=== PATIENT | female | born 1950 | race Caucasian/White ===

== ENCOUNTER 2020-07-25 10:06 | Observation (INO) | payer OTHER, SELFPAY ==
--- NOTE | ~2020-07-25 | MR_ITS ---
MRI OF THE BRAIN WITHOUT IV CONTRAST INDICATION: Confusion. COMPARISON: Head CT 07/25/2020 TECHNIQUE: Multiplanar multisequence MR imaging of the brain was obtained without IV contrast. FINDINGS: There is no hydrocephalus, extra-axial surface collection, or herniation. There is mild chronic microangiopathy. There is a 1.2 cm x 0.5 cm extra-axial nodule along the right parasylvian convexity on image 13 of series 9, most likely a meningioma. No associated mass effect nor adjacent parenchymal edema. The major flow voids at the skull base are preserved. 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 There is no acute infarct on diffusion-weighted imaging. There is no intracranial hemorrhage on the gradient recalled echo acquisition. The midline structures are normal. The cerebellar tonsils are normally positioned. The cerebellum and brainstem are normal. The craniocervical junction is normal. Osseous marrow signal intensity is homogenous. The visualized soft tissues are unremarkable. MR/MR head/brain wo con IMPRESSION: - There is a 1.2 cm x 0.5 cm extra-axial nodule along the right parasylvian convexity on image 13 of series 9, most likely a meningioma. No associated mass effect nor adjacent parenchymal edema. - There is mild chronic microangiopathy. 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
--- NOTE | ~2020-07-25 | CT_ITS ---
EXAMINATION: CT HEAD WITHOUT CONTRAST CT CERVICAL SPINE WITHOUT CONTRAST CLINICAL INFORMATION: Syncope. Status post fall. Neck pain. COMPARISON: None TECHNIQUE: Multidetector volumetric CT imaging of the head and cervical spine is acquired without intravenous contrast administration. Postprocessing is performed at a dedicated workstation. Multiplanar reformatted images are submitted. This CT scan was performed using dose optimization techniques as appropriate to a performed exam including the following: *Automated exposure control *Adjustment of mA and/or kV according to patient size (this includes techniques or standardized protocols for targeted exams were dose is matched to indication/reason for exam; i.e. extremities or head) *Use of iterative reconstruction technique DLP: 746.84 mGy-cm. FINDINGS: CT HEAD: The ventricles and sulci are age appropriate. There is no hydrocephalus. Mild global volume loss is noted. There is no evidence of acute intracranial hemorrhage, midline shift or mass effect. Rick to white matter differentiation is well preserved. No evidence of acute territorial infarction. Moderate calcific atherosclerosis of the internal carotid arteries. No evidence of abnormal extra-axial fluid collection. The osseous calvarium is intact. No evidence of significant calvarial soft tissue swelling or hematoma. The visualized paranasal sinuses and mastoid air cells are well-aerated. Cerumen is noted in the bilateral external auditory canals. CT CERVICAL SPINE: The vertebral body heights and alignment are maintained. Posterior elements are intact and in normal alignment. Atlantoaxial and atlantooccipital alignments are maintained. Degenerative changes are noted at the atlantoaxial articulation. There is severe narrowing of the C4-C5, C5-C6 and C6-C7 disc spaces with small marginal endplate osteophytes. Mild to moderate right neural foraminal stenosis at C4-C5 and C6-C7. Severe left neural foraminal stenosis at C6-C7. No evidence of prevertebral soft tissue swelling. The airway is widely patent. There is heterogeneity of the thyroid parenchyma without discrete nodule. The visualized lung apices are unremarkable. CT/CT cervical spine wo con IMPRESSION: 1. No acute intracranial abnormality. 2. No evidence of acute fracture or subluxation in the cervical spine. 3. Moderate cervical spondylosis from C4-C7.
[2020-07-25 10:22] VITALS: BP 155/79; PULSE 104; RESP 22; TEMP 36.4; O2SAT 97; BMI 27.0
[2020-07-25] MEDS: 0.9 % Sodium Chloride 1,000 ML 999 ML IV (11:39)
--- NOTE | 2020-07-25 11:41 | ED.GENADULT ---
HPI - General Adult General Chief complaint: Fall Stated complaint: ?uti, ams, not well kept Time Seen by Provider: 07/25/20 11:28 Source: patient Mode of arrival: ambulatory Limitations: no limitations History of Present Illness HPI narrative: Patient brought to the ED for evaluation. Patient brought in for fall possibly due to syncope. Patient does not remember what occurred. Patient admits she was standing all the sudden she was in the EMS ambulance. EMS report states neighbors heard a thud and found patient on the ground. Patient smells of urine. Patient presently has no physical complaints. Related Data Allergies Allergy/AdvReac Type Severity Reaction Status Date / Time penicillamine Allergy Unknown Verified 03/12/19 00:00 Review of Systems Review of Systems: Yes all other systems are reviewed and are negative Constitutional: Constitutional: Reports as per HPI and Reports no additional constitutional complaints Eyes: Eyes: Reports as per HPI and Reports no additional eye complaints ENT: Reports system reviewed and no additional complaints, except as documented and Reports as per HPI Cardiovascular: Cardiovascular: Reports as per HPI and Reports no additional cardiovascular complaints Respiratory: Respiratory: Reports as per HPI and Reports no additional respiratory complaints Gastrointestinal: Gastrointestinal: Reports as per HPI and Reports no additional gastrointestinal complaints Musculoskeletal: Musculoskeletal: Reports no additional musculoskeletal complaints and Reports as per HPI Neurologic: Reports system reviewed and no additional complaints, except as documented and Reports as per HPI [facility] Past Medical History Medical History (Updated 07/25/20 @ 16:35 by CHOCO Saxena) COVID-19 vaccine administered Social History Social History (Updated 07/25/20 @ 15:52 by Carlotta Crespo NP) Household Members Other:: Lives alone Alcohol intake: current Patient Tobacco Use Status: Never used Tobacco Advance Directives: No Advance Directives Information Provided: Yes Physical Exam Vital Signs: Vital Signs: Last Vital Signs Temp 97.6 F 07/25/20 10:22 Pulse 91 07/25/20 15:34 Resp 14 07/25/20 15:34 BP 157/80 H 07/25/20 15:34 Pulse Ox 96 07/25/20 15:34 Body Mass Index 27.0 Const: General: cooperative, healthy appearing, comfortable, no acute distress, well developed, alert, awake and Physically active Orientation/consciousness: patient oriented x3 HENMT: Head: Yes normal to inspection, Yes No palpable skull fracture present, Yes normocephalic and Yes atraumatic Eyes: General: appearance normal, both eyes and all related structures Neck: Neck: Yes normal visual inspection, Yes full ROM, Yes no lymphadenopathy, Yes no meningeal signs, Yes trachea midline, Yes supple and No tender Chest: Chest palpation & inspection: normal inspection of the chest and normal palpation of entire chest wall Resp: Effort & Inspection: normal respiratory effort and able to speak in complete sentences Cardio: Jugular venous distension: no JVD Heart sounds: S1 normal heart sound present and S2 normal heart sound present GI: Inspection: Yes normal to inspection and No abdominal wall ecchymosis Palpation (GI): Soft to palpation, not firm, nontender, no guarding and not rigid : General: Yes no CVA tenderness Back/Spine/Pelvis: Back: no CVA tenderness, No CVA tenderness and No back tenderness Skin: General skin exam: no rashes or lesions noted and elasticity normal Neuro: Other: Cranial nerves intact. Negative pronator drift. Negative slurred speech. Negative facial droop. [id number] rapid hand movement intact. General: patient oriented x3, no meningeal signs and CN's II-XI intact bilaterally Cranial nerves: Yes CN's II-XII intact bilaterally Extrem: General: Yes normal to inspection and Yes full ROM Psych: Appearance: grossly normal and disheveled Course Course Course Narrative: Patient smell of urine. Will do labs and EKG. Patient be sent for imaging Reevaluation(s) Reevaluation #1: EKG negative STEMI. Patient's 1st troponin negative. Patient UA negative. Patient head CT came back normal. Patient presently is alert oriented x3. Spoke with brother who was concerned for patient and believed there was a change in patient's behavior although she seems normal presently in the ER. He states told him that patient's apartment is filthy. And patient was found in urine on the ground most likely passed out. Brother, JABARI, then states he saw the patient 2 weeks ago she was totally fine. Reevaluation #2: Case presented to Dr. Ba who accepted case for syncope versus seizure. Medical Decision Making MDM Narrative Medical decision making narrative: Syncope versus seizure Lab Data Result diagrams: 07/25/20 11:48 07/25/20 11:48 Labs: Lab Results 07/25/20 07/25/20 07/25/20 Range/Units 11:48 11:48 11:48 WBC 9.9 (4.8-10.8) X10*3/uL RBC 4.35 (4.20-5.50) X10*6/uL Hgb 13.6 (12.0-16.0) g/dl Hct 40.8 (37-47) % MCV 93.8 (80-98) fL MCH 31.3 (27.0-33.0) pg MCHC 33.3 (31.0-35.0) g/dl RDW 13.6 (11.0-16.0) % Plt Count 215 (160-400) X10*3/uL MPV 9.8 (9.4-12.3) fL Immature Gran % (Auto) 0.6 H (0.0-0.4) % Neut % (Auto) 91.5 H (45-73) % Lymph % (Auto) 3.8 L (20-40) % [place] % (Auto) 4.0 (2-11) % Eos % (Auto) 0.0 (0-4) % Baso % (Auto) 0.1 (0-2) % Lymph # (Auto) 0.4 L (1.2-4.9) X10*3/uL [place] # (Auto) 0.4 (0.1-1.2) X10*3/uL Eos # (Auto) 0.0 (0.0-0.4) X10*3/uL Baso # (Auto) 0.0 (0.0-0.2) X10*3/uL Abs Immat Gran (auto) 0.06 H (0.00-0.03) X10*3/uL Absolute Neuts (auto) 9.1 H (2.0-8.3) X10*3/uL Absolute Nucleated RBC 0.000 (0.0-0.012) X10*3/uL Nucleated RBC % (auto) 0.0 (0.0-0.2) /100WBC Smear Tech's Comments VERIFIED PT 11.7 (10.8-13.0) SEC INR 1.0 (0.9-1.1) APTT 25.6 (24.1-38.0) SEC Sodium 141 (135-145) mmol/L Potassium 4.3 (3.3-5.1) mmol/L Chloride 106 (96-108) mmol/L Carbon Dioxide 25 (22-29) mmol/L Anion Gap 14 (12-20) BUN 12 (9-16) mg/dL Creatinine 0.87 (0.5-1.4) mg/dL Estim Creat Clear Calc 72.7 Estimated GFR > 60 Random Glucose 135 H (60-115) mg/dL Calcium 9.2 (8.4-10.2) mg/dL Total Bilirubin 0.6 (0.0-1.0) mg/dL AST 25 (5-31) U/L ALT 17 (0-31) U/L Alkaline Phosphatase 71 (39-117) U/L Troponin I High Sens (<3.5-17.0) ng/L Total Protein 6.9 (6.5-8.0) g/dL Albumin 4.0 (3.5-5.0) g/dL Urine Color Urine Appearance Urine pH (5.0-8.0) Ur Specific [place] (1.005-1.025) Urine Protein (NEG-TRACE) MG/DL Urine Glucose (UA) (NEG) MG/DL Urine Ketones (NEG) MG/DL Urine Blood (NEG) Urine Nitrite (NEG) Ur Leukocyte Esterase (NEG) Urine RBC (0) /HPF Urine WBC (0-4) /HPF Ur Squamous Epith Cells /LPF Urine Bacteria /LPF Urine Opiates Screen (Not Detect) Ur Barbiturates Screen (Not Detect) Ur Phencyclidine Scrn (Not Detect) Ur Amphetamines Screen (Not Detect) U Benzodiazepines Scrn (Not Detect) Urine Cocaine Screen (Not Detect) U Marijuana (THC) Screen (Not Detect) Ethyl Alcohol mg/dL COVID-19 (JAREN) (Negative) COVID-19 Clin Com 07/25/20 07/25/20 07/25/20 Range/Units 11:48 11:48 13:39 WBC (4.8-10.8) X10*3/uL RBC (4.20-5.50) X10*6/uL Hgb (12.0-16.0) g/dl Hct (37-47) % MCV (80-98) fL MCH (27.0-33.0) pg MCHC (31.0-35.0) g/dl RDW (11.0-16.0) % Plt Count (160-400) X10*3/uL MPV (9.4-12.3) fL Immature Gran % (Auto) (0.0-0.4) % Neut % (Auto) (45-73) % Lymph % (Auto) (20-40) % [place] % (Auto) (2-11) % Eos % (Auto) (0-4) % Baso % (Auto) (0-2) % Lymph # (Auto) (1.2-4.9) X10*3/uL [place] # (Auto) (0.1-1.2) X10*3/uL Eos # (Auto) (0.0-0.4) X10*3/uL Baso # (Auto) (0.0-0.2) X10*3/uL Abs Immat Gran (auto) (0.00-0.03) X10*3/uL Absolute Neuts (auto) (2.0-8.3) X10*3/uL Absolute Nucleated RBC (0.0-0.012) X10*3/uL Nucleated RBC % (auto) (0.0-0.2) /100WBC Smear Tech's Comments PT (10.8-13.0) SEC INR (0.9-1.1) APTT (24.1-38.0) SEC Sodium (135-145) mmol/L Potassium (3.3-5.1) mmol/L Chloride (96-108) mmol/L Carbon Dioxide (22-29) mmol/L Anion Gap (12-20) BUN (9-16) mg/dL Creatinine (0.5-1.4) mg/dL Estim Creat Clear Calc Estimated GFR Random Glucose (60-115) mg/dL Calcium (8.4-10.2) mg/dL Total Bilirubin (0.0-1.0) mg/dL AST (5-31) U/L ALT (0-31) U/L Alkaline Phosphatase (39-117) U/L Troponin I High Sens 13.0 (<3.5-17.0) ng/L Total Protein (6.5-8.0) g/dL Albumin (3.5-5.0) g/dL Urine Color YELLOW Urine Appearance CLOUDY Urine pH 6.0 (5.0-8.0) Ur Specific [place] 1.025 (1.005-1.025) Urine Protein TRACE (NEG-TRACE) MG/DL Urine Glucose (UA) NEG (NEG) MG/DL Urine Ketones NEG (NEG) MG/DL Urine Blood 1+ H (NEG) Urine Nitrite NEG (NEG) Ur Leukocyte Esterase NEG (NEG) Urine RBC 1-4 (0) /HPF Urine WBC 1-4 (0-4) /HPF Ur Squamous Epith Cells NONE /LPF Urine Bacteria 4+ /LPF Urine Opiates Screen (Not Detect) Ur Barbiturates Screen (Not Detect) Ur Phencyclidine Scrn (Not Detect) Ur Amphetamines Screen (Not Detect) U Benzodiazepines Scrn (Not Detect) Urine Cocaine Screen (Not Detect) U Marijuana (THC) Screen (Not Detect) Ethyl Alcohol < 10 mg/dL COVID-19 (JAREN) (Negative) COVID-19 Clin Com 07/25/20 07/25/20 Range/Units 13:39 15:33 WBC (4.8-10.8) X10*3/uL RBC (4.20-5.50) X10*6/uL Hgb (12.0-16.0) g/dl Hct (37-47) % MCV (80-98) fL MCH (27.0-33.0) pg MCHC (31.0-35.0) g/dl RDW (11.0-16.0) % Plt Count (160-400) X10*3/uL MPV (9.4-12.3) fL Immature Gran % (Auto) (0.0-0.4) % Neut % (Auto) (45-73) % Lymph % (Auto) (20-40) % [place] % (Auto) (2-11) % Eos % (Auto) (0-4) % Baso % (Auto) (0-2) % Lymph # (Auto) (1.2-4.9) X10*3/uL [place] # (Auto) (0.1-1.2) X10*3/uL Eos # (Auto) (0.0-0.4) X10*3/uL Baso # (Auto) (0.0-0.2) X10*3/uL Abs Immat Gran (auto) (0.00-0.03) X10*3/uL Absolute Neuts (auto) (2.0-8.3) X10*3/uL Absolute Nucleated RBC (0.0-0.012) X10*3/uL Nucleated RBC % (auto) (0.0-0.2) /100WBC Smear Tech's Comments PT (10.8-13.0) SEC INR (0.9-1.1) APTT (24.1-38.0) SEC Sodium (135-145) mmol/L Potassium (3.3-5.1) mmol/L Chloride (96-108) mmol/L Carbon Dioxide (22-29) mmol/L Anion Gap (12-20) BUN (9-16) mg/dL Creatinine (0.5-1.4) mg/dL Estim Creat Clear Calc Estimated GFR Random Glucose (60-115) mg/dL Calcium (8.4-10.2) mg/dL Total Bilirubin (0.0-1.0) mg/dL AST (5-31) U/L ALT (0-31) U/L Alkaline Phosphatase (39-117) U/L Troponin I High Sens (<3.5-17.0) ng/L Total Protein (6.5-8.0) g/dL Albumin (3.5-5.0) g/dL Urine Color Urine Appearance Urine pH (5.0-8.0) Ur Specific [place] (1.005-1.025) Urine Protein (NEG-TRACE) MG/DL Urine Glucose (UA) (NEG) MG/DL Urine Ketones (NEG) MG/DL Urine Blood (NEG) Urine Nitrite (NEG) Ur Leukocyte Esterase (NEG) Urine RBC (0) /HPF Urine WBC (0-4) /HPF Ur Squamous Epith Cells /LPF Urine Bacteria /LPF Urine Opiates Screen Not Detected (Not Detect) Ur Barbiturates Screen Not Detected (Not Detect) Ur Phencyclidine Scrn Not Detected (Not Detect) Ur Amphetamines Screen Not Detected (Not Detect) U Benzodiazepines Scrn Not Detected (Not Detect) Urine Cocaine Screen Not Detected (Not Detect) U Marijuana (THC) Screen Not Detected (Not Detect) Ethyl Alcohol mg/dL COVID-19 (JAREN) Negative (Negative) COVID-19 Clin Com See Note ECG Data Interpretation: Normal Sinus Rythm. Ventricular Rate 67 LA 132. LA 90. QTC is 439. negative stemi Discharge Plan Discharge Clinical Impression: Syncope, Seizure Patient Disposition: Admitted As Inpatient
[2020-07-25 12:00] LABS: Basophils Percent Auto 0.1 % (0-2); Hematocrit 40.8 % (37-47); Hemoglobin 13.6 g/dl (12.0-16.0); Imm Gran Abs Auto 0.06 X10*3/uL (0.00-0.03); Imm Gran Pct Auto 0.6 % (0.0-0.4); Lymphocytes Absolute Auto 0.4 X10*3/uL (1.2-4.9); Lymphocytes Percent Auto 3.8 % (20-40); MANUAL DIFF FLAG SCAN; Mean Corpuscular HGB Conc 33.3 g/dl (31.0-35.0); Mean Corpuscular Hemoglobin 31.3 pg (27.0-33.0); Mean Corpuscular Volume 93.8 fL (80-98); Mean Platelet Volume 9.8 fL (9.4-12.3); Monocytes Absolute Auto 0.4 X10*3/uL (0.1-1.2); Neutrophils Absolute Auto 9.1 X10*3/uL (2.0-8.3); Neutrophils Percent Auto 91.5 % (45-73); Platelet Count 215 X10*3/uL (160-400); Red Blood Count 4.35 X10*6/uL (4.20-5.50); Red Cell Distribution Width 13.6 % (11.0-16.0); SCAN SMEAR FLAG 1; White Blood Count 9.9 X10*3/uL (4.8-10.8)
[2020-07-25 12:05] LABS: Prothrombin Time 11.7 SEC (10.8-13.0)
[2020-07-25 12:08] LABS: Partial Thromboplastin Time 25.6 SEC (24.1-38.0)
[2020-07-25 12:16] LABS: Ethanol < 10 mg/dL
[2020-07-25 12:17] LABS: SLIDE REVIEW VERIFIED
[2020-07-25 12:20] LABS: Alanine Aminotransferase 17 U/L (0-31); Alkaline Phosphatase 71 U/L (39-117); Anion Gap 14 (12-20); Aspartate Amino Transferase 25 U/L (5-31); Bilirubin Total 0.6 mg/dL (0.0-1.0); Blood Urea Nitrogen 12 mg/dL (9-16); Calcium 9.2 mg/dL (8.4-10.2); Carbon Dioxide 25 mmol/L (22-29); Chloride 106 mmol/L (96-108); Creatinine Clr Calc Pharmacy 72.7; Estimated Glomerular Filt Rate > 60; Glucose Random 135 mg/dL (60-115); Potassium 4.3 mmol/L (3.3-5.1); Sodium 141 mmol/L (135-145); Total Protein 6.9 g/dL (6.5-8.0)
[2020-07-25 13:06] VITALS: BP 180/86; PULSE 97; RESP 20; O2SAT 7
[2020-07-25 13:49] LABS: Appearance Urine CLOUDY; Color Urine YELLOW; Glucose Urine UA NEG (NEG); Leukocyte Esterase Urine NEG (NEG); Nitrite Urine NEG (NEG); Specific Gravity - Urine 1.025 (1.005-1.025); Urine Blood 1+ (NEG); Urine Ketones NEG (NEG); Urine Protein TRACE MG/DL (NEG-TRACE)
[2020-07-25 13:59] LABS: Bacteria Urine 4+ /LPF
[2020-07-25 14:00] LABS: UACC CULT YES
[2020-07-25 14:10] LABS: Amphetamine Screen Urine Not Detected (Not Detect); Barbiturates, Urine Not Detected (Not Detect); Benzodiazepines Screen Urine Not Detected (Not Detect); Cocaine Screen Urine Not Detected (Not Detect); Opiate Screen Urine Not Detected (Not Detect); Phencyclidine Screen Urine Not Detected (Not Detect)
[2020-07-25 14:20] LABS: Cannabinoid Screen Urine Not Detected (Not Detect)
[2020-07-25 15:34] VITALS: BP 157/80; PULSE 91; RESP 14; O2SAT 96
--- NOTE | 2020-07-25 15:39 | P.HPHOSP_ITS ---
History of Present Illness Date of Service: 07/25/20 Chief Complaint: Confusion 70-year-old woman presenting to the ER with confusion. According to EMS record patient was found in her home quite confused when they arrived and brought to the ER for further evaluation. Patient reports that she remembers getting up this morning getting ready for work and sat on the couch, next thing she knew she was in the ER. Apparently her neighbors had heard a thud and went up and checked on her and found that her apartment was in disarray, there was urine on the floor and the patient had fallen. The patient does not remember any of this. According to the patient's brother who was present during the interview he saw her approximately 2 weeks ago and she seemed fine however he had not been to her apartment and quite a long time so he was unable to say whether she has had her apartment in a clean condition or not. Patient reports that her apartment had been clean and she only had a few pockets to wash. She is co mpletely alert and oriented x3, she reports that she works at [employer] and she drives and is independent. She denies any recent illness, fever, chills, nausea, vomiting, diarrhea, chest pain, recent travel, sick contacts. No infectious source noted, head CT with no acute abnormality. Her labs are within acceptable limits, vital signs are stable though her blood pressure reading is mildly elevated with no history of high blood pressure. She is not on any medications at home. She was given a L of IV fluid in the ER she be placed on observation for acute encephalopathy. Review of Systems Review of Systems: Denies any recent fever chills or decrease in appetite respiratory denies any shortness of breath coverage production cardiovascular Denied chest pain or sob gastrointestinal denies any dysphagia abdominal pain nausea vomiting or diarrhea genitourinary denies any dysuria frequency or hematuria musculoskeletal denies any joint pain or swelling neuropsych denies any weakness or seizures all other systems reviewed are negative [facility] Medical History (Updated 07/25/20 @ 15:56 by Carlotta Crespo NP) COVID-19 vaccine administered Social History (Updated 07/25/20 @ 15:52 by Carlotta Crespo NP) Household Members Other:: Lives alone Alcohol intake: current Patient Tobacco Use Status: Never used Tobacco Advance Directives: No Advance Directives Information Provided: Yes Meds Allergies Allergy/AdvReac Type Severity Reaction Status Date / Time penicillamine Allergy Unknown Verified 03/12/19 00:00 Active Medications: Current Medications Generic Name Dose Route Start Last Admin Trade Name Freq PRN Reason Stop Dose Admin Acetaminophen 650 mg 07/25/20 15:37 Acetaminophen 325 Mg Tablet PO Q6H PRN Pain, Mild (Pain Scale 1-3) Ondansetron HCl 4 mg 07/25/20 15:37 Ondansetron Hcl 4 Mg/2 Ml Vial IVPUSH Q8H PRN Nausea and Vomiting Sodium Chloride 3 ml 07/25/20 16:00 0.9 % Sodium Chloride Flush 3 Ml Syringe IVFLUSH QSHIFT [facility] Physical Exam Vital Signs and Narrative: Vital Signs: Last Vital Signs Temp 97.6 F 07/25/20 10:22 Pulse 91 07/25/20 15:34 Resp 14 07/25/20 15:34 BP 157/80 H 07/25/20 15:34 Pulse Ox 96 07/25/20 15:34 Body Mass Index 27.0 Appearing in no acute distress head is normocephalic atraumatic eyes pupils are PERRLA sclera is anicteric mouth throat mucous membranes are intact and moist neck is supple no lymphadenopathy, no JVD noted lung sounds are clear to auscultation heart regular rate rhythm, clear S1, S2 positive bowel sounds, abdomen is soft, nontender neuro patient is alert x3, no focal deficits although some difficulty with direction during neuro exam Results Labs CBC and Chem 7: 07/25/20 11:48 07/25/20 11:48 Labs: Laboratory Results - last 24 hr 07/25/20 07/25/20 07/25/20 11:48 11:48 11:48 MCV 93.8 MCH 31.3 MCHC 33.3 RDW 13.6 Plt Count 215 MPV 9.8 Immature Gran % (Auto) 0.6 H Neut % (Auto) 91.5 H Lymph % (Auto) 3.8 L [place] % (Auto) 4.0 Eos % (Auto) 0.0 Baso % (Auto) 0.1 Lymph # (Auto) 0.4 L [place] # (Auto) 0.4 Eos # (Auto) 0.0 Baso # (Auto) 0.0 Abs Immat Gran (auto) 0.06 H Absolute Neuts (auto) 9.1 H Absolute Nucleated RBC 0.000 Nucleated RBC % (auto) 0.0 Smear Tech's Comments VERIFIED PT 11.7 INR 1.0 APTT 25.6 Anion Gap 14 Estim Creat Clear Calc 72.7 Estimated GFR > 60 Random Glucose 135 H Calcium 9.2 Total Bilirubin 0.6 AST 25 ALT 17 Alkaline Phosphatase 71 Troponin I High Sens Total Protein 6.9 Albumin 4.0 Urine Color Urine Appearance Urine pH Ur Specific [place] Urine Protein Urine Glucose (UA) Urine Ketones Urine Blood Urine Nitrite Ur Leukocyte Esterase Urine RBC Urine WBC Ur Squamous Epith Cells Urine Bacteria Urine Opiates Screen Ur Barbiturates Screen Ur Phencyclidine Scrn Ur Amphetamines Screen U Benzodiazepines Scrn Urine Cocaine Screen U Marijuana (THC) Screen Ethyl Alcohol 07/25/20 07/25/20 07/25/20 11:48 11:48 13:39 MCV MCH MCHC RDW Plt Count MPV Immature Gran % (Auto) Neut % (Auto) Lymph % (Auto) [place] % (Auto) Eos % (Auto) Baso % (Auto) Lymph # (Auto) [place] # (Auto) Eos # (Auto) Baso # (Auto) Abs Immat Gran (auto) Absolute Neuts (auto) Absolute Nucleated RBC Nucleated RBC % (auto) Smear Tech's Comments PT INR APTT Anion Gap Estim Creat Clear Calc Estimated GFR Random Glucose Calcium Total Bilirubin AST ALT Alkaline Phosphatase Troponin I High Sens 13.0 Total Protein Albumin Urine Color YELLOW Urine Appearance CLOUDY Urine pH 6.0 Ur Specific [place] 1.025 Urine Protein TRACE Urine Glucose (UA) NEG Urine Ketones NEG Urine Blood 1+ H Urine Nitrite NEG Ur Leukocyte Esterase NEG Urine RBC 1-4 Urine WBC 1-4 Ur Squamous Epith Cells NONE Urine Bacteria 4+ Urine Opiates Screen Ur Barbiturates Screen Ur Phencyclidine Scrn Ur Amphetamines Screen U Benzodiazepines Scrn Urine Cocaine Screen U Marijuana (THC) Screen Ethyl Alcohol < 10 07/25/20 13:39 MCV MCH MCHC RDW Plt Count MPV Immature Gran % (Auto) Neut % (Auto) Lymph % (Auto) [place] % (Auto) Eos % (Auto) Baso % (Auto) Lymph # (Auto) [place] # (Auto) Eos # (Auto) Baso # (Auto) Abs Immat Gran (auto) Absolute Neuts (auto) Absolute Nucleated RBC Nucleated RBC % (auto) Smear Tech's Comments PT INR APTT Anion Gap Estim Creat Clear Calc Estimated GFR Random Glucose Calcium Total Bilirubin AST ALT Alkaline Phosphatase Troponin I High Sens Total Protein Albumin Urine Color Urine Appearance Urine pH Ur Specific [place] Urine Protein Urine Glucose (UA) Urine Ketones Urine Blood Urine Nitrite Ur Leukocyte Esterase Urine RBC Urine WBC Ur Squamous Epith Cells Urine Bacteria Urine Opiates Screen Not Detected Ur Barbiturates Screen Not Detected Ur Phencyclidine Scrn Not Detected Ur Amphetamines Screen Not Detected U Benzodiazepines Scrn Not Detected Urine Cocaine Screen Not Detected U Marijuana (THC) Screen Not Detected Ethyl Alcohol Imaging Radiologist's Impressions: Impressions Cervical Spine CT 07/25/20 11:34 IMPRESSION: 1. No acute intracranial abnormality. 2. No evidence of acute fracture or subluxation in the cervical spine. 3. Moderate cervical spondylosis from C4-C7. Head CT 07/25/20 11:34 IMPRESSION: 1. No acute intracranial abnormality. 2. No evidence of acute fracture or subluxation in the cervical spine. 3. Moderate cervical spondylosis from C4-C7. Assessment and Plan (1) Acute encephalopathy: Status: Acute 70-year-old woman presented to the ER with acute confusion. Apparently patient usually quite independent, she continues to work and drives. Patient reports that she has no history of medical problems, dementia. According to her brother was present during the interview he had seen her approximately 2 weeks ago and she was completely alert and oriented. Her apartment was found to be in disarray today however she does not receive visitors therefore it is unknown if this is been ongoing for some time or if this is new. Multiple differentials including stroke versus tumor versus dementia versus seizure. Other than that all of her labs are within acceptable limits and there is no infectious source noted. Encephalopathy. Unknown etiology at this time No obvious infectious source - MRI with and without contrast stroke vs tumor - neuro consultation - neuro checks - Telemetry - blood and urine cx pending Elevated blood pressure reading no hx of htn -Monitor BP DVT prophylaxis with Lovenox Full code Attending: Dr. Ba
--- NOTE | 2020-07-25 15:44 | ECG_ITS ---
Test Reason : AM Blood Pressure : / mmHG Vent. Rate : 109 BPM Atrial Rate : 109 BPM P-R Int : 144 ms QRS Dur : 088 ms QT Int : 352 ms P-R-T Axes : 043 010 037 degrees QTc Int : 474 ms Sinus tachycardia Left atrial enlargement Cannot rule out Inferior infarct , age undetermined Abnormal ECG No previous ECGs available Referred By: Carlotta Crespo Electronically Signed By:CHRISTA SELLERS
--- NOTE | 2020-07-25 15:44 | PM.EVENT ---
Event Note Date of Service: 07/25/20 Event Note: Patient seen and examined independently and was present during mejia portion of E/M service. Agree with midlevel's history, physical, assessment, and plan. 70F found to have disheveled house encephalopathy ddx: CVA, brain mass, dementia mri neuro eval
[2020-07-25 15:54] LABS: COVID-19 Test Negative (Negative)
[2020-07-25 17:54] VITALS: BP 188/86; PULSE 95; RESP 15; TEMP 36.8; O2SAT 98
[2020-07-25] MEDS: Enoxaparin Sodium 40 MG/0.4 ML SYRINGE SUBCUT (18:21)
[2020-07-25 19:26] VITALS: BP 107/63; PULSE 80; RESP 18; TEMP 36.5; O2SAT 98
[2020-07-25 20:29] VITALS: BP 170/90; PULSE 90; RESP 15; TEMP 36.3; O2SAT 95
[2020-07-26] VITALS (7 sets, daily range): BP systolic 137–156; BP diastolic 65–84; PULSE 70–89; RESP 18–20; TEMP 36.1–36.8; O2SAT 94–98
--- NOTE | 2020-07-26 | EEG_ITS ---
The waking background activity consists of low voltage fast frequencies seen diffusely, intermixed with low voltage posterior 8 to 9 hertz alpha frequency. Photic stimulation is without activation. Hyperventilation was omitted. No focal, lateralizing, or paroxysmal discharges seen. IMPRESSION: This waking EEG is within normal limits. MD FABI Lee/EVAN / [id number]
[2020-07-26] MEDS: 0.9 % Sodium Chloride Flush 3 ML SYRINGE IVFLUSH ×4 (00:58→21:06)
[2020-07-26 05:56] LABS: MANUAL DIFF FLAG NO
[2020-07-26 06:24] LABS: Basophils Percent Auto 0.1 % (0-2); Hematocrit 37.7 % (37-47); Hemoglobin 12.2 g/dl (12.0-16.0); Imm Gran Abs Auto 0.03 X10*3/uL (0.00-0.03); Imm Gran Pct Auto 0.4 % (0.0-0.4); Lymphocytes Absolute Auto 0.7 X10*3/uL (1.2-4.9); Lymphocytes Percent Auto 8.7 % (20-40); Mean Corpuscular HGB Conc 32.4 g/dl (31.0-35.0); Mean Corpuscular Hemoglobin 30.7 pg (27.0-33.0); Mean Corpuscular Volume 94.7 fL (80-98); Mean Platelet Volume 9.7 fL (9.4-12.3); Monocytes Absolute Auto 0.6 X10*3/uL (0.1-1.2); Monocytes Percent Auto 6.6 % (2-11); Neutrophils Absolute Auto 7.1 X10*3/uL (2.0-8.3); Neutrophils Percent Auto 84.2 % (45-73); Platelet Count 204 X10*3/uL (160-400); Red Blood Count 3.98 X10*6/uL (4.20-5.50); Red Cell Distribution Width 13.4 % (11.0-16.0); White Blood Count 8.4 X10*3/uL (4.8-10.8)
[2020-07-26 06:28] LABS: Anion Gap 12 (12-20); Blood Urea Nitrogen 8 mg/dL (9-16); Calcium 8.8 mg/dL (8.4-10.2); Carbon Dioxide 27 mmol/L (22-29); Chloride 106 mmol/L (96-108); Creatinine Clr Calc Pharmacy 80.1; Estimated Glomerular Filt Rate > 60; Glucose Random 118 mg/dL (60-115); Potassium 3.9 mmol/L (3.3-5.1); Sodium 141 mmol/L (135-145)
[2020-07-26] MEDS: cefTRIAXone sodium 1 GM in 0.9 % Sodium Chloride 50 ML IV (09:42)
--- NOTE | 2020-07-26 10:01 | HO.PM.IMPN ---
Subjective Subjective Date of Service: 07/26/20 Interval History: Follow up encephalopathy Doing good today no medical complaints Physical Exam Vital Signs: Vital Signs: Last Vital Signs Temp 98 F 07/26/20 07:02 Pulse 82 07/26/20 07:02 Resp 18 07/26/20 07:02 BP 149/75 H 07/26/20 07:02 Pulse Ox 94 07/26/20 07:02 Body Mass Index 27.0 Appearing in no acute distress lung sounds are clear to auscultation heart regular rate rhythm, clear S1, S2 positive bowel sounds, abdomen is soft, nontender neuro patient is alert x3, no focal deficits Objective Data Current Medications Generic Name Dose Route Start Last Admin Trade Name Freq PRN Reason Stop Dose Admin Acetaminophen 650 mg 07/25/20 15:37 Acetaminophen 325 Mg Tablet PO Q6H PRN Pain, Mild (Pain Scale 1-3) Enoxaparin Sodium 40 mg 07/25/20 18:00 07/25/20 18:21 Enoxaparin Sodium 40 Mg/0.4 Ml Syringe SUBCUT 40 mg Q24H MILLICENT Administration Ceftriaxone Sodium 1 gm/ 50 mls @ 100 mls/hr 07/26/20 10:00 07/26/20 09:42 Sodium Chloride IV 100 mls/hr Q24H MILLICENT Administration Ondansetron HCl 4 mg 07/25/20 15:37 Ondansetron Hcl 4 Mg/2 Ml Vial IVPUSH Q8H PRN Nausea and Vomiting Sodium Chloride 3 ml 07/25/20 16:00 07/26/20 09:35 0.9 % Sodium Chloride Flush 3 Ml Syringe IVFLUSH 3 ml QSHIFT MILLICENT Administration Labs CBC & Chem 7: 07/26/20 05:03 07/26/20 05:03 Microbiology Microbiology Results: Microbiology 07/25/20 00:00 Urine Catheterized - Straight Catheter Urine Culture - Preliminary Gram negative venu Assessment and Plan (1) Acute encephalopathy: Status: Acute Assessment and Plan: 70-year-old woman presented to the ER with acute confusion. Apparently patient usually quite independent, she continues to work and drives. Patient reports that she has no history of medical problems, dementia. According to her brother was present during the interview he had seen her approximately 2 weeks ago and she was completely alert and oriented. Her apartment was found to be in disarray today however she does not receive visitors therefore it is unknown if this is been ongoing for some time or if this is new. Multiple differentials including stroke versus tumor versus dementia versus seizure. Other than that all of her labs are within acceptable limits and there is no infectious source noted. Encephalopathy. Urine cx GNR, blood cx pending - Rocephin - MRI negative - neuro consultation - neuro checks - Telemetry Elevated blood pressure reading no hx of htn -Monitor BP DISPO: likely home after cx with services DVT prophylaxis with Lovenox Full code Attending: Dr. Ba
--- NOTE | 2020-07-26 10:15 | MHC.CM.PN ---
dc plan is home no svcs. pt lives alone. she reports that she is independent in her care, uses no AD c ambulation and has no svcs in the home. she drives a car and works at [employer]. pt denies the need for vna at mi. pt will have her brother provide transportation at [place]. cm to cont . to follow.
--- NOTE | 2020-07-26 17:19 | P.CNNE_ITS ---
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 She is on no prescription medications and has been generally healthy with no previous history of any cardiac or neurological disorder and not specific history of syncope or seizure. She got great woodwork yesterday and since the posterior lower leg she decided to lay down on the couch. The next thing she remembers is waking up with the extension supervisor being at her bedside. Apparently the girls live downstairs heard a bang and when the tried to reach her she didn't respond. Her when they went into the apartment as she was on the floor was confused and incontinent. The place was also in somewhat of a mass. She had seen her brother 2 weeks or earlier who had reported that she was fine at that time. She had gone to work the day before. Since then she's felt back to normal and her mind is clear. She has no complaints. Review of Systems Eyes: Eyes: Reports no additional eye complaints ENT: Reports system reviewed and no additional complaints, except as documented and Reports Normal hearing present Cardiovascular: Cardiovascular: Reports no additional cardiovascular complain ts Respiratory: Respiratory: Reports no additional respiratory complaints Gastrointestinal: Gastrointestinal: Reports no additional gastrointestinal complaints Musculoskeletal: Musculoskeletal: Reports no additional musculoskeletal complaints Integumentary/Breasts: Skin/Breast: Reports system reviewed and no additional complaints, except as docu Neurologic: Reports as per HPI and Reports Normal hearing present Psychiatric: Psychiatric: Reports as per HPI Endocrine: Endocrine: Reports no additional endocrine complaints Hematologic/Lymphatic: Hematologic/Lymphatic: Reports no additional hematologic/lymphatic complaints Allergic/Immunologic: Allergic/Immunologic: Reports no additional allergi c/immunologic complaints [facility] Past Medical History Medical History (Updated 07/25/20 @ 16:35 by CHOCO Saxena) COVID-19 vaccine administered Social History Social History (Updated 07/25/20 @ 15:52 by Carlotta Crespo NP) Household Members Other:: Lives alone Alcohol intake: current Patient Tobacco Use Status: Never used Tobacco Advance Directives: No Advance Directives Information Provided: Yes service: No Current occupational status: employed Meds Allergies Allergy/AdvReac Type Severity Reaction Status Date / Time penicillamine Allergy Unknown Verified 03/12/19 00:00 Active Medications: Current Medications Generic Name Dose Route Start Last Admin Trade Name Darrianq PRN Reason Stop Dose Admin Acetaminophen 650 mg 07/25/20 15:37 Acetaminophen 325 Mg Tablet PO Q6H PRN Pain, Mild (Pain Scale 1-3) Enoxaparin Sodium 40 mg 07/25/20 18:00 07/25/20 18:21 Enoxaparin Sodium 40 Mg/0.4 Ml Syringe SUBCUT 40 mg Q24H MILLICENT Administration Ceftriaxone Sodium 1 gm/ 50 mls @ 100 mls/hr 07/26/20 10:00 07/26/20 11:48 Sodium Chloride IV Infused Q24H MILLICENT Infusion Ondansetron HCl 4 mg 07/25/20 15:37 Ondansetron Hcl 4 Mg/2 Ml Vial IVPUSH Q8H PRN Nausea and Vomiting Sodium Chloride 3 ml 07/25/20 16:00 07/26/20 09:35 0.9 % Sodium Chloride Flush 3 Ml Syringe IVFLUSH 3 ml QSHIFT MILLICENT Administration Physical Exam Vital Signs: Vital Signs: Last Vital Signs Temp 97.7 F 07/26/20 15:13 Pulse 70 07/26/20 15:13 Resp 20 07/26/20 15:13 BP 150/68 H 07/26/20 15:13 Pulse Ox 95 07/26/20 15:13 Body Mass Index 27.0 Const: General: cooperative, comfortable, no acute distress, well developed, alert and awake Nutritional Appearance: well nourished Orientation/consciousness: oriented to person, oriented to place and oriented to time Limitations: no limitations HENMT: Head: Yes normal to inspection, Yes normocephalic and Yes atraumatic Ears: hearing grossly normal bilaterally General nose exam: Normal external nose present Face and sinus: Yes normal facial exam Mouth: Normal oral and palatal mucosa present Eyes: General: appearance normal, both eyes and all related structures Visual Fatima: normal visual fatima by confrontation Alignment and Position: alignment normal Periorbital: periorbital findings normal Eyelids: Yes eyelids normal Conjunctivae: conjunctivae normal Sclerae: sclerae normal Corneas: corneas normal Pupils: Equal, round and reactive pupils present and Pupil accommodation reflex normal EOM: EOMs intact bilaterally Direct Ophthalmoscopy: normal light reflex Neck: Neck: Yes normal visual inspection, Yes full ROM and Yes no meningeal signs Thyroid: Thyroid normal Carotids: normal carotid upstroke and bounding pulses Chest: Chest palpation & inspection: normal inspection of the chest Resp: Effort & Inspection: normal respiratory effort Auscultation: clear to auscultation bilaterally Cardio: Rate: regular rate Rhythm: regular rhythm Heart sounds: S1 normal heart sound present and S2 normal heart sound present Peripheral pulses: Peripheral pulses 2+ throughout GI: Inspection: Yes normal to inspection Percussion: Yes normal to percussion Auscultation: normal bowel sounds Rectal Exam - Female: deferred Back/Spine/Pelvis: Cervical Spine: normal cervical lordosis and cervical ROM normal Thoracic/Lumbar Spine: thoracic and lumbar spine normal to inspection Skin: General skin exam: no rashes or lesions noted Neuro: General: oriented to person, oriented to place, oriented to time, gait normal, tone normal, moves all extremities, Normal light touch and pain sensation, no meningeal signs, no focal motor deficits, CN's II-XI intact bilaterally, normal sensation to monofilament and deep tendon reflexes 2+ bilaterally Cranial nerves: Yes CN's II-XII intact bilaterally, Yes Equal, round and reactive pupils present, Yes Bilaterally intact EOM present, Yes Nystagmus not present, Yes Normal facial strength present, Yes Midline tongue present, Yes Normal gag reflex present, Yes Symmetric palate elevation present, Yes Normal hearing present and Yes Ability to bilaterally rotate head present Cognition (Neuro): normal cognition Speech: Other speech findings present (Neuro) Gait exam (Neuro): Normal gait present Motor exam (neuro): 5/5 motor strength present throughout, Pronator motor function not present, no tremor noted, no asterixis, Motor fasciculations not present, Normal motor muscle tone present throughout and Motor abnormalities not present Sensory Exam: Bilaterally intact graphesthesia Deep tendon reflexes (DTR's): Right triceps reflex intensity grade: 2+, Left triceps reflex intensity grade: 2+, Rt Biceps (C5, C6): 2+, Left biceps reflex intensity grade: 2+, Right brachiora dialis reflex intensity grade: 2+, Left brachioradialis reflex intensity grade: 2+, Right patellar reflex intensity grade: 2+, Left patellar reflex intensity grade: 2+, Right ankle reflex intensity grade: 2+ and Left ankle reflex intensity grade: 2+ Plantar Reflex Responses: downgoing: right, left and bilateral Coordination: [id number]-tf-[id number] test normal, kpxo-[id number] test normal, tandem gait normal and Romberg test negative Pupils: Normal pupillary reactivity/response: bilateral Extrem: General: Yes normal to inspection, Yes normal exam except as noted and Yes no pedal edema Psych: Appearance: grossly normal Mental Status: mental status grossly normal Speech and movement: Normal speech and movement present and Clear speech present Affect: normal affect Attitude: cooperative Thought process: Normal thought process present Results Labs CBC & Chem 7: 07/26/20 05:03 07/26/20 05:03 Labs: Short CBC 07/26/20 Range/Units 05:03 WBC 8.4 (4.8-10.8) X10*3/uL Hgb 12.2 (12.0-16.0) g/dl Hct 37.7 (37-47) % Plt Count 204 (160-400) X10*3/uL BMP 07/26/20 05:03 Sodium 141 Potassium 3.9 Chloride 106 Carbon Dioxide 27 BUN 8 L Creatinine 0.79 Calcium 8.8 Microbiology Microbiology Results: Microbiology 07/25/20 00:00 Urine Catheterized - Straight Catheter Urine Culture - P reliminary Gram negative venu Assessment and Plan (1) Syncope: Status: Acute The onset of syncope versus seizure. Recommendation cardiac monitoring. EEG. MRI of the brain was unremarkable except for a tiny right sylvian meningioma,, And mild age-related microvascular disease. (2) Seizure: Status: Acute EEG Procedures Date of Service Date of Service: 07/26/20
[2020-07-26] MEDS: Enoxaparin Sodium 40 MG/0.4 ML SYRINGE SUBCUT (18:21)
[2020-07-27 03:53] VITALS: BP 140/70; PULSE 75; RESP 18; TEMP 36.4; O2SAT 94
[2020-07-27 07:55] VITALS: BP 160/82; PULSE 79; RESP 18; TEMP 36.8; O2SAT 94
[2020-07-27] MEDS: 0.9 % Sodium Chloride Flush 3 ML SYRINGE IVFLUSH (09:55)
[2020-07-27] MEDS: cefTRIAXone sodium 1 GM in 0.9 % Sodium Chloride 50 ML IV (09:55)
--- NOTE | 2020-07-27 11:21 | MHC.CM.PN ---
Female 70 DX Confusion. Pt had an EEG this am. DP PT is discharged to home today with family transport.
[2020-07-27 12:00] VITALS: BP 160/80; PULSE 90; RESP 18; TEMP 36.4; O2SAT 97
--- NOTE | 2020-07-27 13:00 | P.DS_ITS ---
DS: Providers Provider Date of Service: 07/27/20 <CHOCO Perrin - Last Filed: 07/27/20 13:34> Date of admission: 07/25/20 15:35 <CHOCO Perrin - Last Filed: 07/27/20 13:34> Primary care physician: Ran Physician <CHOCO Perrin - Last Filed: 07/27/20 13:34> Consults: 07/25/20 15:37 Consult to Neurology Routine Consulting Provider: [facility] Reason for consultation: confusion, ? stroke vs tumor vs seizure Has provider been notified: No <CHOCO Perrin Last Filed: 07/27/20 13:34> DS: Diagnosis Discharge Diagnosis (1) Syncope: Status: Acute <CHOCO Perrin Last Filed: 07/27/20 13:34> (2) Seizure: Status: Acute <CHOCO Perrin Last Filed: 07/27/20 13:34> DS: Summary Hospital Course Hospital Course: From H&P on day of admission 70-year-old woman presenting to the ER with confusion. According to EMS record patient was found in her home quite confused when they arrived and brought to the ER for further evaluation. Patient reports that she remembers getting up this morning getting ready for work and sat on the couch, next thing she knew she was in the ER. Apparently her neighbors had heard a thud and went up and checked on her and found that her apartment was in disarray, there was urine on the floor and the patient had fallen. The patient does not remember any of this. According to the patient's brother who was present during the interview he saw her approximately 2 weeks ago and she seemed fine however he had not been to her apartment and quite a long time so he was unable to say whether she has had her apartment in a clean condition or not. Patient reports that her apartment had been clean and she only had a few pockets to wash. She is completely alert and oriented x3, she reports that she works at [employer] and she drives and is independent. She denies any recent illness, fever, chills, nausea, vomiting, diarrhea, chest pain, recent travel, sick contacts. No infectious source noted, head CT with no acute abnormality. Her labs are within acceptable limits, vital signs are stable though her blood pressure reading is mildly elevated with no history of high blood pressure. She is not on any medications at home. She was given a L of IV fluid in the ER she be placed on observation for acute encephalopathy. Encephalopathy. Likely secondary to UTI. Urine culture growing E coli. Blood cultures negative times 24 hours. She is now back to her baseline mentation. She Will be discharged home to complete course of antibiotics Syncope versus seizure. Patient monitored on telemetry with no adverse events noted. 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 No other acute changes were found. She was evaluated by Neurology who recommended EEG. EEG was done and was unremarkable. She will be discharged in stable condition. She should call her PCP to schedule follow-up appointment. Recommending no driving for 6 months as per [place] [employer] law. Elevated blood pressure No diagnosis of hypertension. Patient was started on low-dose Norvasc which can be uptitrated as outpatient if necessary. Patient should call to schedule follow-up appointment for her primary care physician for blood pressure monitoring and follow-up. <CHOCO Perrin - Last Filed: 07/27/20 13:34> Time Spent with Patient Time attestation: Total time spent providing and/or coordinating discharge services: <CHOCO Perrin - Last Filed: 07/27/20 13:34> Discharge coordination time: Greater than 30 minutes <CHOCO Perirn - Last Filed: 07/27/20 13:34> Quality: Stroke Does the patient have a stroke diagnosis?: No <CHOCO Perrin - Last Filed: 07/27/20 13:34> Physical Exam Vital Signs: Vital Signs: Last Vital Signs Temp 97.6 F 07/27/20 12:00 Pulse 90 07/27/20 12:00 Resp 18 07/27/20 12:00 BP 160/80 H 07/27/20 12:00 Pulse Ox 97 07/27/20 12:00 Body Mass Index 27.0 <CHOCO Perrin Last Filed: 07/27/20 13:34> Const: General: comfortable, no acute distress, alert and awake <CHOCO Perrin - Last Filed: 07/27/20 13:34> Nutritional Appearance: well nourished <CHOCO Perrin - Last Filed: 07/27/20 13:34> Orientation/consciousness: patient oriented x3 <CHOCO Perrin - Last Filed: 07/27/20 13:34> HENMT: Head: Yes normocephalic and Yes atraumatic <CHOCO Perrin - Last Filed: 07/27/20 13:34> Eyes: Sclerae: sclerae normal <CHOCO Perrin - Last Filed: 07/27/20 13:34> Resp: Effort & Inspection: normal respiratory effort and no respiratory distress <CHOCO Perrin - Last Filed: 07/27/20 13:34> Cardio: Rate: regular rate <CHOCO Perrin - Last Filed: 07/27/20 13:34> Rhythm: regular rhythm <CHOCO Perrin - Last Filed: 07/27/20 13:34> GI: Palpation (GI): Soft to palpation and nontender <CHOCO Perrin - Last Filed: 07/27/20 13:34> Neuro: General: patient oriented x3 <CHOCO Perrin Last Filed: 07/27/20 13:34> Cranial nerves: Yes CN's II-XII intact bilaterally and Yes Bilaterally intact EOM present <CHOCO Perrin Last Filed: 07/27/20 13:34> DS: Data Data Completed and Pending Labs on day of discharge: Preliminary micro results at discharge 07/25/20 16:46 Blood Culture - Preliminary Blood - Venous No growth after 24 hours. 07/25/20 16:46 Blood Culture - Preliminary Blood - Venous No growth after 24 hours. <CHOCO Perrin Last Filed: 07/27/20 13:34> Discharge Plan Discharge Patient Disposition: Home, Self-Care <CHOCO Perrin Last Filed: 07/27/20 13:34> Discharge Diagnosis: Syncope versus seizure <CHOCO Perrin Last Filed: 07/27/20 13:34> Syncope versus seizure <David Mlapah, MD - Last Filed: 07/27/20 17:52> Referrals: Physician,None [Primary Care Provider] - 1 Week <CHOCO Perrin - Last Filed: 07/27/20 13:34> Discharge Medications: New cefuroxime axetil 500 mg tablet 500 mg PO BID 3 Days Qty: 6 RF: 0 amlodipine [Norvasc] 2.5 mg tablet 2.5 mg PO DAILY 30 Days Qty: 30 RF: 0 <CHOCO Perrin - Last Filed: 07/27/20 13:34> Discharge Orders: Discharge Order (Routine); Ordered 07/27/20 Ordered By: Ne Barragan <CHOCO Perrin - Last Filed: 07/27/20 13:34> Activity on Discharge: As tolerated <CHOCO Perrin - Last Filed: 07/27/20 13:34> As tolerated <David Figueroa MD - Last Filed: 07/27/20 17:52> Stand Alone Forms: Patient Portal Discharge page <CHOCO Perrin - Last Filed: 07/27/20 13:34> Care Plan Goals: See below <CHOCO Perrin Last Filed: 07/27/20 13:34> Health Concerns: Syncope versus seizure <CHOCO Perrin - Last Filed: 07/27/20 13:34> Plan of Treatment: Recommend no driving, taking baths or swimming alone for next 6 months Please call PCP to schedule follow-up appointment You have been started on a new medication for blood pressure. Follow up with PCP for blood pressure monitoring <CHOCO Perrin - Last Filed: 07/27/20 13:34> Assessment: See discharge summary I have seen and evaluated this patient. I have discussed the case and its management with the REFINERY PIPELINE OPERATOR and I agree with the findings and plan as documented in the PA?s note. -David Figueroa MD <CHOCO Perrin - Last Filed: 07/27/20 13:34>
[2020-07-27 13:11] VITALS: BP 135/72; PULSE 98
== END 2020-07-27 18:00 | disposition home or self-care (01) ==
LOC: HO.ED 10:40 → HO.EDOVER 15:43 → HO.IMC 16:36
PROVIDERS: Physician Assistant; Admitting Provider Nurse Practitioner Acute Care; Emergency Provider Emergency Medicine; Visit Provider Internal Medicine
DX: G93.40 Encephalopathy, unspecified (principal); R55 Syncope and collapse; R56.9 Unspecified convulsions; R41.82 Altered mental status, unspecified; F03.90 Unspecified dementia, unspecified severity, without behavioral disturbance, psychotic disturbance, mood disturbance, and anxiety; R03.0 Elevated blood-pressure reading, without diagnosis of hypertension; M47.812 Spondylosis without myelopathy or radiculopathy, cervical region; I73.9 Peripheral vascular disease, unspecified; I72.0 Aneurysm of carotid artery; G93.89 Other specified disorders of brain; M54.2 Cervicalgia; R00.0 Tachycardia, unspecified; R94.31 Abnormal electrocardiogram [ECG] [EKG]; I51.7 Cardiomegaly; R33.9 Retention of urine, unspecified; Z88.8 Allergy status to other drugs, medicaments and biological substances; Z20.822 Contact with and (suspected) exposure to COVID-19; Z91.81 History of falling; Z23 Encounter for immunization; Z79.899 Other long term (current) drug therapy
CPT/HCPCS: 36415; 70450; 70551; 72125; 80048; 80053; 80307; 81001; 82077; 84484; 85025; 85610; 85730; 87040; 87086; 87088; 87186; 87635; 93005; 95816; 96361; 96365; 96372; 96374; 96375; 99219; 99285; J0696; J1650